=== PATIENT | female | born 1980 | race Caucasian/White ===

== ENCOUNTER 2020-04-05 12:07 | Day surgery (SDC) | payer OTHER ==
[~2020-04-05 12:07] MED LIST: DIPRIVAN 200 MG/20 ML IV ONE; Ketamine HCl 50 MG/ML ONE
[2020-04-05] MEDS ORDERED: Depo-Medrol 40 MG/ML IM ONE (12:08)
[2020-04-05] MEDS ORDERED: BUPIVACAINE 0.5% VIAL IJ ONE (12:08)
[2020-04-05] MEDS ORDERED: Lactated Ringers 1,000 ML IV ONE (15:51)
--- NOTE | 2020-04-05 16:26 | XRAY ---
Indication: Bilateral SI joint injection. Intraoperative fluoroscopy was provided for 12 seconds. 4 digital spot images submitted for interpretation demonstrates posterior needle tip projecting over the inferior left and right SI joints. Correlate with intraoperative findings/report.
--- NOTE | 2020-04-05 16:28 | XRAY ---
12 seconds fluoroscopy time in surgery for bilateral SI joint injections.
== END 2020-04-05 14:20 | disposition home or self-care (01) ==
LOC: SDC-PAIN 12:07
PROVIDERS: ATTEND Psychiatry & Neurology Pain Medicine
DX: M46.1 Sacroiliitis, not elsewhere classified (principal); M79.7 Fibromyalgia; M06.9 Rheumatoid arthritis, unspecified; I73.00 Raynaud's syndrome without gangrene; Z79.899 Other long term (current) drug therapy
CPT/HCPCS: 72202; 77002; J1030; J2704

== ENCOUNTER 2020-08-16 10:41 | Day surgery (SDC) | payer OTHER ==
[2020-08-16] MEDS ORDERED: BUPIVACAINE 0.5% VIAL IJ ONE (10:42)
[2020-08-16] MEDS ORDERED: Depo-Medrol 40 MG/ML IM ONE (10:42)
[2020-08-16] MEDS ORDERED: Decadron 4 MG INJ IV ONE (10:42)
[2020-08-16] MEDS ORDERED: Xylocaine 1% Vial 30 ML PF IJ ONE (10:42)
[2020-08-16] MEDS ORDERED: Ketamine HCl 50 MG/ML ONE (12:18)
[2020-08-16] MEDS ORDERED: DIPRIVAN 200 MG/20 ML IV ONE (12:18)
--- NOTE | 2020-08-16 14:09 | XRAY ---
Indication: Left piriformis injection. Intraoperative fluoroscopy was provided for 18 seconds. Single digital spot image submitted for interpretation demonstrates needle tip projecting over the expected left piriformis muscle. Small amount of contrast injected for needle tip placement. Correlate with intraoperative findings/report.
--- NOTE | 2020-08-16 14:11 | XRAY ---
Indication: Left greater trochanter bursa injection. Intraoperative fluoroscopy was provided for 8 seconds. Single digital spot image submitted for interpretation demonstrates needle tip projecting lateral to the left greater trochanter. Small amount of contrast injected for needle tip placement. Correlate with intraoperative findings/report.
--- NOTE | 2020-08-16 14:16 | XRAY ---
18 seconds of fluoroscopy was used in surgery for a left piriformis injection.
--- NOTE | 2020-08-16 14:21 | XRAY ---
Indication: Right greater trochanter bursa injection. Intraoperative fluoroscopy was provided for 12 seconds. Single digital spot image submitted for interpretation demonstrates needle tip projecting lateral to the right greater trochanter. Small amount of contrast injected for needle tip placement. Correlate with intraoperative findings/report.
--- NOTE | 2020-08-16 15:04 | XRAY ---
8 seconds of fluoroscopy was used in surgery for a left hip greater trochanteric bursa injection.
--- NOTE | 2020-08-16 15:04 | XRAY ---
12 seconds of fluoroscopy was used in surgery for a right hip greater trochanteric bursa injection.
[2020-08-16] MEDS ORDERED: Lactated Ringers 1,000 ML IV ONE (15:55)
== END 2020-08-16 12:45 | disposition home or self-care (01) ==
LOC: SDC-PAIN 10:41
PROVIDERS: ATTEND Psychiatry & Neurology Pain Medicine
DX: M70.62 Trochanteric bursitis, left hip (principal); M70.61 Trochanteric bursitis, right hip; M60.9 Myositis, unspecified; I73.00 Raynaud's syndrome without gangrene; M79.7 Fibromyalgia; G62.9 Polyneuropathy, unspecified; Z79.899 Other long term (current) drug therapy
CPT/HCPCS: 20553; 20610; 72020; 73501; 77002; J1030; J1100; J2001; J2704; Q9966

== ENCOUNTER 2020-10-11 12:26 | Day surgery (SDC) | payer OTHER ==
[2020-10-11] MEDS ORDERED: LIDOCAINE HCL 2% 100 MG/5 ML IJ ONE (12:27)
[2020-10-11] MEDS ORDERED: DIPRIVAN 200 MG/20 ML IV ONE (14:26)
[2020-10-11] MEDS ORDERED: Ketamine HCl 50 MG/ML ONE (14:26)
[2020-10-11] MEDS ORDERED: Lactated Ringers 1,000 ML IV ONE (15:15)
--- NOTE | 2020-10-11 16:25 | XRAY ---
Indication: Bilateral L4-S1 MBB. Intraoperative fluoroscopy provided for 17 seconds. Single digital spot image submitted for interpretation demonstrates posterior needle tips projecting over the expected left and right L4-S1 nerve roots. Correlate with intraoperative findings/report.
--- NOTE | 2020-10-11 16:28 | XRAY ---
17 seconds of fluoroscopy was used in surgery for a bilateral L4-L5 and L5-S1 MBB.
== END 2020-10-11 14:51 | disposition home or self-care (01) ==
LOC: SDC-PAIN 12:26
PROVIDERS: ATTEND Psychiatry & Neurology Pain Medicine
DX: M47.816 Spondylosis without myelopathy or radiculopathy, lumbar region (principal); M06.9 Rheumatoid arthritis, unspecified; M79.7 Fibromyalgia; I73.00 Raynaud's syndrome without gangrene; G62.9 Polyneuropathy, unspecified; Z79.899 Other long term (current) drug therapy
CPT/HCPCS: 64493; 64494; 72020; 77002; J2704

== ENCOUNTER 2021-02-21 15:57 | Day surgery (SDC) | payer OTHER ==
[2021-02-21] MEDS ORDERED: BUPIVACAINE 0.5% VIAL IJ ONE (15:58)
[2021-02-21] MEDS ORDERED: DIPRIVAN 200 MG/20 ML IV ONE (17:29)
[2021-02-21] MEDS ORDERED: Zofran 4 MG/2 ML VIAL ONE (17:45)
[2021-02-21] MEDS ORDERED: BENADRYL 50 MG/ML ONE (17:45)
[2021-02-21] MEDS ORDERED: TORAdol 30 mg Injection ONE (17:45)
[2021-02-21] MEDS ORDERED: Lactated Ringers 2,000 ML IV ONE (18:01)
--- NOTE | 2021-02-22 11:54 | XRAY ---
11 seconds fluoroscopy time in surgery for bilateral L4-S1 MBB.
--- NOTE | 2021-02-25 01:00 | XRAY ---
Indication: Bilateral L4-S1 MBB. Intraoperative fluoroscopy was provided for 11 seconds. A single digital spot image submitted for interpretation demonstrates posterior spinal needle tips projected over the expected course of the left and right L4-S1 nerve roots. Correlate with intraoperative findings/report.
== END 2021-02-21 17:59 | disposition home or self-care (01) ==
LOC: SDC-PAIN 15:57
PROVIDERS: ATTEND Psychiatry & Neurology Pain Medicine
DX: M47.816 Spondylosis without myelopathy or radiculopathy, lumbar region (principal); Z79.899 Other long term (current) drug therapy
CPT/HCPCS: 64493; 64494; 72100; 77002; J1200; J1885; J2405; J2704

== ENCOUNTER 2021-03-28 15:49 | Day surgery (SDC) | payer OTHER ==
[2021-03-28] MEDS ORDERED: Depo-Medrol 40 MG/ML IM ONE (15:50)
[2021-03-28] MEDS ORDERED: BUPIVACAINE 0.5% VIAL IJ ONE (15:50)
[2021-03-28] MEDS ORDERED: Xylocaine 1% Vial 30 ML PF IJ ONE (15:50)
[2021-03-28] MEDS ORDERED: DIPRIVAN 200 MG/20 ML IV ONE ×2 (16:18→16:44)
[2021-03-28] MEDS ORDERED: Lactated Ringers 1,000 ML IV ONE (16:44)
--- NOTE | 2021-03-28 19:20 | XRAY ---
Indication: Right L4-S1 RFA. Intraoperative fluoroscopy provided for 20 seconds. 3 digital spot image demonstrates posterior needle tips projecting over the expected right L4-S1 nerve roots. Correlate with intraoperative findings/report.
--- NOTE | 2021-03-29 11:09 | XRAY ---
20 seconds fluoroscopy time in surgery for right L4-S1 RFA.
== END 2021-03-28 17:05 | disposition home or self-care (01) ==
LOC: SDC-PAIN 15:49
PROVIDERS: ATTEND Psychiatry & Neurology Pain Medicine
DX: M47.816 Spondylosis without myelopathy or radiculopathy, lumbar region (principal); Z79.899 Other long term (current) drug therapy
CPT/HCPCS: 64635; 64636; 72100; 77002; J1030; J2001; J2704

== ENCOUNTER 2021-04-04 13:13 | Day surgery (SDC) | payer OTHER ==
[2021-04-04] MEDS ORDERED: BUPIVACAINE 0.5% VIAL IJ ONE (13:14)
[2021-04-04] MEDS ORDERED: Depo-Medrol 40 MG/ML IM ONE (13:14)
[2021-04-04] MEDS ORDERED: Xylocaine 1% Vial 30 ML PF IJ ONE (13:14)
[2021-04-04] MEDS ORDERED: Lactated Ringers 1,000 ML IV ONE (13:41)
[2021-04-04] MEDS ORDERED: DIPRIVAN 200 MG/20 ML IV ONE ×2 (14:19→14:33)
--- NOTE | 2021-04-04 15:18 | XRAY ---
Indication: Left L4-S1 RFA. Intraoperative fluoroscopy provided for 33 seconds. 3 digital spot images submitted for interpretation demonstrates posterior needle tips projecting over the expected left L4-S1 nerve roots. Correlate with intraoperative findings/report.
--- NOTE | 2021-04-04 15:20 | XRAY ---
33 seconds fluoroscopy time in surgery for left L4-S1 RFA.
== END 2021-04-04 14:55 | disposition home or self-care (01) ==
LOC: SDC-PAIN 13:13
PROVIDERS: ATTEND Psychiatry & Neurology Pain Medicine
DX: M47.816 Spondylosis without myelopathy or radiculopathy, lumbar region (principal); Z79.899 Other long term (current) drug therapy
CPT/HCPCS: 64635; 64636; 72100; 77002; J1030; J2001; J2704

== ENCOUNTER 2021-05-30 11:49 | Day surgery (SDC) | payer OTHER ==
[2021-05-30] MEDS ORDERED: BUPIVACAINE 0.5% VIAL IJ ONE (11:50)
[2021-05-30] MEDS ORDERED: Depo-Medrol 40 MG/ML IM ONE (11:50)
[2021-05-30] MEDS ORDERED: Xylocaine 1% Vial 30 ML PF IJ ONE (11:50)
--- NOTE | 2021-05-30 15:26 | XRAY ---
Indication: Bilateral SI joint injection. Intraoperative fluoroscopy provided for 18 seconds. 4 digital spot image submitted for interpretation demonstrates posterior needle tip projecting over the inferior left and right SI joint. Correlate with intraoperative findings/report.
--- NOTE | 2021-05-30 17:01 | XRAY ---
18 seconds fluoroscopy time in surgery for bilateral SI joint injections.
== END 2021-05-30 14:37 | disposition home or self-care (01) ==
LOC: SDC-PAIN 11:49
PROVIDERS: ATTEND Psychiatry & Neurology Pain Medicine
DX: M46.1 Sacroiliitis, not elsewhere classified (principal); F41.9 Anxiety disorder, unspecified; F32.9 Major depressive disorder, single episode, unspecified; M06.9 Rheumatoid arthritis, unspecified; G62.9 Polyneuropathy, unspecified; Z79.899 Other long term (current) drug therapy
CPT/HCPCS: 27096; 72202; 77002; G0260; J1030; J2001

== ENCOUNTER 2022-01-02 11:08 | Day surgery (SDC) | payer OTHER ==
[2022-01-02] MEDS ORDERED: Marcaine Mpf 0.5% Vial 30 Ml IJ ONE (11:09)
[2022-01-02] MEDS ORDERED: Depo-Medrol 40 MG/ML IM ONE (11:09)
[2022-01-02] MEDS ORDERED: DIPRIVAN 200 MG/20 ML IV ONE (13:29)
--- NOTE | 2022-01-02 15:08 | XRAY ---
Indication: Bilateral SI joint injection. Intraoperative fluoroscopy provided for 15 seconds. 4 digital spot images submitted for interpretation demonstrates posterior needle tip projecting over the inferior left and right SI joints. Correlate with intraoperative findings/report.
[2022-01-02] MEDS ORDERED: Lactated Ringers 1,000 ML IV ONE (15:40)
--- NOTE | 2022-01-02 16:46 | XRAY ---
15 seconds of fluoroscopy was used in surgery for bilateral SI joint injections.
== END 2022-01-02 13:53 | disposition home or self-care (01) ==
LOC: SDC-PAIN 11:08
PROVIDERS: ATTEND Psychiatry & Neurology Pain Medicine
DX: M46.1 Sacroiliitis, not elsewhere classified (principal); Z79.899 Other long term (current) drug therapy
CPT/HCPCS: 27096; 72202; 77002; G0260; J1030; J2704

== ENCOUNTER 2022-12-11 10:33 | Day surgery (SDC) | payer OTHER ==
[2022-12-11] MEDS ORDERED: LIDOCAINE HCL 1% 50 MG/5 ML VL PF IJ ONE (10:34)
[2022-12-11] MEDS ORDERED: BUPIVACAINE 0.5% VIAL IJ ONE (10:34)
[2022-12-11] MEDS ORDERED: Depo-Medrol 40 MG/ML IM ONE (10:34)
[2022-12-11] MEDS ORDERED: DIPRIVAN 200 MG/20 ML IV ONE ×2 (12:50→13:01)
[2022-12-11] MEDS ORDERED: Xylocaine-Mpf 2% 5 Ml Vial ONE (12:54)
--- NOTE | 2022-12-11 13:59 | XRAY ---
Indication: Right L4-S1 RFA. Intraoperative fluoroscopy provided for 24 seconds. 4 digital spot image submitted for interpretation demonstrates posterior needle tips projecting over the expected right L4-S1 nerve roots. Correlate with intraoperative findings/report.
[2022-12-11] MEDS ORDERED: Lactated Ringers 1,000 ML IV ONE (15:22)
== END 2022-12-11 13:25 | disposition home or self-care (01) ==
LOC: SDC-PAIN 10:33
PROVIDERS: ATTEND Psychiatry & Neurology Pain Medicine
DX: M47.816 Spondylosis without myelopathy or radiculopathy, lumbar region (principal); Z79.899 Other long term (current) drug therapy
CPT/HCPCS: 64635; 64636; 72100; 77002; J1030; J2001; J2704

== ENCOUNTER 2022-12-18 10:29 | Day surgery (SDC) | payer OTHER ==
[2022-12-18] MEDS ORDERED: BUPIVACAINE 0.5% VIAL IJ ONE (10:30)
[2022-12-18] MEDS ORDERED: LIDOCAINE HCL 1% 50 MG/5 ML VL PF IJ ONE (10:30)
[2022-12-18] MEDS ORDERED: Depo-Medrol 40 MG/ML IM ONE (10:30)
[2022-12-18] MEDS ORDERED: DIPRIVAN 200 MG/20 ML IV ONE (12:58)
--- NOTE | 2022-12-18 14:53 | XRAY ---
Indication: Left L4-S1 RFA. Intraoperative fluoroscopy provided for 17 seconds. 4 digital spot image submitted for interpretation demonstrates posterior needle tips projecting over the expected left L4-S1 nerve roots. Correlate with intraoperative findings/report.
[2022-12-18] MEDS ORDERED: Lactated Ringers 1,000 ML IV ONE (15:20)
--- NOTE | 2022-12-18 17:21 | XRAY ---
17 seconds of fluoroscopy was used in surgery for a left L4-S1 RFA.
== END 2022-12-18 13:35 | disposition home or self-care (01) ==
LOC: SDC-PAIN 10:29
PROVIDERS: ATTEND Psychiatry & Neurology Pain Medicine
DX: M47.817 Spondylosis without myelopathy or radiculopathy, lumbosacral region (principal); Z79.899 Other long term (current) drug therapy
CPT/HCPCS: 64635; 64636; 72100; 77002; J1030; J2001; J2704

== ENCOUNTER 2023-08-06 10:32 | Day surgery (SDC) | payer OTHER ==
[2023-08-06] MEDS ORDERED: BUPIVACAINE 0.5% VIAL IJ ONE (10:33)
[2023-08-06] MEDS ORDERED: Depo-Medrol 40 MG/ML IM ONE (10:33)
[2023-08-06] MEDS ORDERED: DIPRIVAN 200 MG/20 ML IV ONE (12:47)
[2023-08-06] MEDS ORDERED: Lactated Ringers 1,000 ML IV ONE (14:08)
--- NOTE | 2023-08-06 15:06 | XRAY ---
Indication: Bilateral greater trochanter bursa injection. Intraoperative fluoroscopy provided for 25 seconds. 2 digital spot image submitted for interpretation demonstrates needle tip projecting lateral to left and right greater trochanters. Small amount of contrast injected for needle tip placement. Correlate with intraoperative findings/report.
--- NOTE | 2023-08-06 16:51 | XRAY ---
25 seconds of fluoroscopy was used in surgery for a bilateral greater trochanteric bursa injection.
== END 2023-08-06 13:15 | disposition home or self-care (01) ==
LOC: SDC-PAIN 10:32
PROVIDERS: ATTEND Psychiatry & Neurology Pain Medicine
DX: M70.62 Trochanteric bursitis, left hip (principal); M70.61 Trochanteric bursitis, right hip
CPT/HCPCS: 20610; 73521; 77002; J1030; J2704; Q9966

== ENCOUNTER 2024-02-25 07:42 | Day surgery (SDC) | payer OTHER ==
[2024-02-25] MEDS ORDERED: LIDOCAINE HCL 1% 50 MG/5 ML VL PF IJ ONE (07:43)
[2024-02-25] MEDS ORDERED: Depo-Medrol 40 MG/ML IM ONE (07:43)
[2024-02-25] MEDS ORDERED: BUPIVACAINE 0.5% VIAL IJ ONE (07:43)
[2024-02-25] MEDS ORDERED: DIPRIVAN 200 MG/20 ML IV ONE ×2 (09:42→09:56)
[2024-02-25] MEDS ORDERED: Xylocaine-Mpf 2% 5 Ml Vial ONE (09:44)
--- NOTE | 2024-02-25 11:20 | XRAY ---
Indication: Right L4-S1 RFA. Intraoperative fluoroscopy provided for 29 seconds. 4 digital spot image submitted for interpretation demonstrates posterior needle tips projecting over expected right L4-S1 nerve roots. Correlate with intraoperative findings/report.
--- NOTE | 2024-02-25 11:40 | XRAY ---
29 seconds of fluoroscopy was used in surgery for a right L4-S1 RFA.
[2024-02-25] MEDS ORDERED: Lactated Ringers 1,000 ML IV ONE (14:32)
== END 2024-02-25 10:17 ==
LOC: SDC-PAIN 07:42
PROVIDERS: ATTEND Psychiatry & Neurology Pain Medicine
DX: M47.816 Spondylosis without myelopathy or radiculopathy, lumbar region (principal)
CPT/HCPCS: 64635; 64636; 72100; 77002; J2001; J2704

== ENCOUNTER 2024-02-26 08:51 | Day surgery (SDC) | payer OTHER ==
[2024-02-26] MEDS ORDERED: LIDOCAINE HCL 1% 50 MG/5 ML VL PF IJ ONE (08:52)
[2024-02-26] MEDS ORDERED: BUPIVACAINE 0.5% VIAL IJ ONE (08:52)
[2024-02-26] MEDS ORDERED: Depo-Medrol 40 MG/ML IM ONE (08:52)
[2024-02-26] MEDS ORDERED: Lactated Ringers 1,000 ML IV ONE (10:31)
[2024-02-26] MEDS ORDERED: DIPRIVAN 200 MG/20 ML IV ONE (10:36)
--- NOTE | 2024-02-26 12:13 | XRAY ---
Indication: Left L4-S1 RFA. Intraoperative fluoroscopy provided for 23 seconds. 3 digital spot image submitted for interpretation demonstrates posterior needle tips projecting over the expected left L4-S1 nerve roots. Correlate with intraoperative findings/report.
--- NOTE | 2024-02-26 12:59 | XRAY ---
23 seconds of fluoroscopy was used in surgery for a left L4-S1 RFA.
== END 2024-02-26 11:10 | disposition home or self-care (01) ==
LOC: SDC-PAIN 08:51
PROVIDERS: ATTEND Psychiatry & Neurology Pain Medicine
DX: M47.816 Spondylosis without myelopathy or radiculopathy, lumbar region (principal)
CPT/HCPCS: 64635; 64636; 72100; 77002; J2001; J2704

== ENCOUNTER 2024-08-04 09:38 | Day surgery (SDC) | payer OTHER ==
[2024-08-04] MEDS ORDERED: BUPIVACAINE 0.5% VIAL IJ ONE (09:39)
[2024-08-04] MEDS ORDERED: Depo-Medrol 40 MG/ML IM ONE (09:39)
[2024-08-04] MEDS ORDERED: propofoL IV ONE (10:49)
--- NOTE | 2024-08-04 12:14 | XRAY ---
Indication: Bilateral SI joint injection. Intraoperative fluoroscopy provided for 36 seconds. 4 digital spot image submitted for interpretation demonstrates posterior needle tips projecting over the expected left and right SI joint. Small amount of contrast injected for needle tip placement. Correlate with intraoperative findings/report.
--- NOTE | 2024-08-04 12:55 | XRAY ---
36 seconds of fluoroscopy was used in surgery for a bilateral sacroiliac joint injection.
== END 2024-08-04 11:30 | disposition home or self-care (01) ==
LOC: SDC-PAIN 09:38
PROVIDERS: ATTEND Psychiatry & Neurology Pain Medicine
DX: M46.1 Sacroiliitis, not elsewhere classified (principal)
CPT/HCPCS: 27096; 72202; 77002; J2704; Q9966